=== PATIENT | female | born 1945 | race Two or more races ===

== ENCOUNTER 2018-10-07 10:09 | Day surgery (SDC) | payer MEDICARE ==
[~2018-10-07 10:09] MED LIST: BESIFLOXACIN HCL 0.6% OPH SUSP 5 ML BOTTLE OD PRN; CYCLOPENTOLATE 0.2%/PHENYLEPHRINE 1% OPH SOLN 2 ML OD PRN; DORZOLAMIDE HCL 2%/TIMOLOL MALEAT 0.5% OPH SOLN 10 ML OD PRN; KETOROLAC TROMETHAMINE 0.45% 4 DROP/0.4 ML DROPERETTE OD PRN; TETRACAINE HCL 0.5% OPH SOLN 4 ML OD PRN; TROPICAMIDE 1% OPH SOLN 3 ML OD PRN
[2018-10-07] MEDS: TROPICAMIDE 1% OPH SOLN 3 ML OD PRN ×3 (11:40→12:01)
[2018-10-07] MEDS: CYCLOPENTOLATE 0.2%/PHENYLEPHRINE 1% OPH SOLN 2 ML OD PRN ×3 (11:40→12:01)
[2018-10-07] MEDS: TETRACAINE HCL 0.5% OPH SOLN 4 ML ONE ×3 (11:40→12:07)
[2018-10-07] MEDS: BESIFLOXACIN HCL 0.6% OPH SUSP 5 ML BOTTLE OD PRN ×2 (11:40→11:50)
[2018-10-07] MEDS ORDERED: MIDAZOLAM 2 MG/2 ML INJ ONE (11:50)
[2018-10-07] MEDS ORDERED: FENTANYL CITRATE INJ/PF 100 MCG/2 ML AMPUL ONE (11:50)
[2018-10-07] MEDS ORDERED: TRYPAN BLUE 0.06 % OPH SOLN 0.5 ML DISP.SYRIN ONE (11:54)
[2018-10-07] MEDS: EPINEPHRINE INJ/PF 1 MG/1 ML AMPULE ONE ×2 (12:16)
[2018-10-07] MEDS: LIDOCAINE 1%/PHENYLEPHRINE 1.5% 1 ML VIAL ONE ×2 (12:16)
[2018-10-07] MEDS: CHONDR SU A NA/HYALUR INTRAOC KIT (SURGICARE) ONE ×2 (12:16)
--- NOTE | 2018-10-07 17:49 | [facility] DISCHARGE SUMMARY E ---
[facility] Discharge Summary NAME: YOUNG NEFF AGE: 73Y ADMITTED: 10/07/2018 DISCHARGED: The patient is a 73-year-old female who underwent cataract extraction of the right eye. DIAGNOSIS: Cataract right eye. She underwent surgery because she was having difficulty seeing people's faces and difficulty seeing small print. She should be on a regular diet. No bending at the waist and no heavy lifting. She should use her moxifloxacin, Prolensa, and Durezol at 3:00 p.m. and 8:00 p.m. and sleep with a rigid shield. I will see her for her 1-day postop tomorrow. DICTATING PHYSICIAN: AARTI FRIEDMAN M.D. [id number] PHY#: [id number] ID: [id number] JOB#: [id number] ACCT: [id number] cc:AARTI FRIEDMAN M.D. >
--- NOTE | 2018-10-07 17:49 | [facility] OPERATIVE REPORT E ---
[facility] Operative Report NAME: YOUNG NEFF AGE: 73Y DATE OF SURGERY: 10/07/2018 ROOM: PREOPERATIVE DIAGNOSIS: CATARACT, RIGHT EYE. POSTOPERATIVE DIAGNOSIS: CATARACT, RIGHT EYE. OPERATION: Cataract extraction with insertion of an IOL of the right eye. SURGEON: AARTI FRIEDMAN M.D. ANESTHESIA: Topical. PROCEDURE: After obtaining appropriate consent, the patient's right eye was prepped and draped in sterile fashion as well as the surgeon in a sterile manner and cataract surgery was started. First a paracentesis blade was used to make a side-port incision. Viscoelastic was used to inflate the anterior chamber. Next a 2.4 mm incision was made with a 2.4 mm blade, clear corneal temporally. A continuous capsulorrhexis was made using a cystotome and Utrata forceps. Following this hydrodissection was carried out to make the lens fully loose and mobile and it was rotated 90 degrees. Following this, a ponvbr-ugu-tngsqnj technique was used to phacoemulsify the lens with a CDE of 23.70. The remaining cortex was removed with irrigation/aspiration. Provisc was instilled into the capsular bag to inflate the bag. A SN60WF, 23.0 diopter lens was placed. The remaining viscoelastic material was removed with irrigation/aspiration. Following this, the incision was found to be watertight. Besivance was instilled into the eye and a protective shield was placed over the eye. The patient returned to the postoperative recovery in stable condition. DICTATING PHYSICIAN: AARTI FRIEDMAN M.D. [id number] PHY#: [id number] ID: [id number] JOB#: [id number] ACCT: [id number] cc:AARTI FRIEDMAN M.D. >
== END 2018-10-07 14:01 | disposition home or self-care (01) ==
LOC: SC 10:09
PROVIDERS: ATTEND Internal Medicine
PROC: 08RJ3JZ Replacement of Right Lens with Synthetic Substitute, Percutaneous Approach (ICD-10-PCS; principal; 2018-10-07 11:30)
DX: H25.89 Other age-related cataract (principal); E11.9 Type 2 diabetes mellitus without complications; I10 Essential (primary) hypertension; E78.00 Pure hypercholesterolemia, unspecified; M19.90 Unspecified osteoarthritis, unspecified site; F32.9 Major depressive disorder, single episode, unspecified; M06.9 Rheumatoid arthritis, unspecified; Z87.891 Personal history of nicotine dependence; Z79.84 Long term (current) use of oral hypoglycemic drugs; Z79.899 Other long term (current) drug therapy
CPT/HCPCS: 66984; 82962; 00142; V2632; J2250; J3490 ×2; J0171; J3010; J2370; 142